=== PATIENT | female | born 1995 | race Caucasian/White ===

== ENCOUNTER 2021-01-17 18:34 | Emergency (ER) | payer SELFPAY ==
[~2021-01-17] VITALS: Ht 149.9 cm; Wt 40.8 kg
[~2021-01-17 18:34] MED LIST: Amoxicillin500 MG PO; CLARITIN10 MG PO; Lotrimin Ultra12 GM TP
[2021-01-17 18:56] LABS: Source, Urine Clean Catch
[2021-01-17 19:02] LABS: Appearance, Urine Hazy (Clear); Bilirubin, Urine Neg (Neg); Blood, Urine Neg (Neg); Color, Urine Amber (P-Yellow); Glucose Qualitative, Urine Neg (Neg); Ketones, Urine 1+ (Neg); Leukocyte Esterase, Urine 1+ (Neg); Nitrite, Urine Neg (Neg); Protein, Urine Neg (Neg); Specific Gravity, Urine 1.025 (1.003-1.022); Urobilinogen, Urine 1+ (Normal)
[2021-01-17 19:12] LABS: Bacteria Many /hpf; Red Blood Cells, Urine Not Seen /hpf (0-2); Squamous Epithelial Cells Mod /hpf (Few)
[2021-01-17] MEDS ORDERED: VITAMIN B-625 MG PO (20:06)
[2021-01-17] MEDS ORDERED: Cefpodoxime Pr100 MG PO (23:02)
== END 2021-01-17 20:16 | disposition home or self-care (01) ==
LOC: ER 18:34
PROVIDERS: Physician Assistant
DX: O23.40 Unspecified infection of urinary tract in pregnancy, unspecified trimester (principal); Z3A.00 Weeks of gestation of pregnancy not specified
CPT/HCPCS: 81001; 81025; 87086; 99283; J2405; J7030

== ENCOUNTER 2023-03-03 12:51 | Emergency (ER) | payer OTHER ==
[~2023-03-03] VITALS: Ht 149.9 cm; Wt 45.4 kg
[~2023-03-03 12:51] MED LIST changes: +Cefpodoxime Pr100 MG PO; +VITAMIN B-625 MG PO
[2023-03-03 13:14] VITALS: BP 135/89
[2023-03-03 14:32] LABS: Influenza A, PCR NEGATIVE (NEGATIVE); Influenza B, PCR NEGATIVE (NEGATIVE); Resp Syncytial Virus, PCR NEGATIVE (NEGATIVE); SARS-Cov-2 (COVID-19) PCR, MMC NEGATIVE (NEGATIVE)
[2023-03-03] MEDS ORDERED: ONDA4ODT MM (15:24)
== END 2023-03-03 15:28 | disposition home or self-care (01) ==
LOC: ER 12:51
PROVIDERS: Emergency Medicine
DX: J06.9 Acute upper respiratory infection, unspecified (principal); B34.9 Viral infection, unspecified; Z20.822 Contact with and (suspected) exposure to COVID-19
CPT/HCPCS: 0241U; 99283